=== PATIENT | female | born 1985 | race Caucasian/White ===

== ENCOUNTER 2017-02-04 21:32 | Emergency (ER) | payer OTHER ==
--- NOTE | 2017-02-04 22:36 | ED CLINICAL REPORT ---
Clinical Report - Physicians/Mid Levels [facility] [address] [place] [place] [address] 02/04/2017 21:33 [id number] Time Seen: 22:05 Feb 04 2017. Arrived- By private vehicle. Historian- patient. HISTORY OF PRESENT ILLNESS Chief Complaint: DYSURIA. This started today and still present. The symptoms are described as moderate. The patient has had pelvic pain. She has had pain with urination and urgency of urination. The patient has had urinary frequency. Last normal menstrual period was 1 week ago. Sexually active. REVIEW OF SYSTEMS No vomiting, diarrhea, fever or cough. All systems otherwise negative, except as recorded above. PAST HISTORY Problems: Contusion. Gastroparesis. Additional Surgeries: Cholecystectomy. . Gallbladder Surgery. [place] teeth. Medications: Nexium 24HR Oral (Capsule Delayed Release 20 mg) 2 capsules, twice daily. Allergies: morphine. Shellfish-derived Products. Vancomycin. SOCIAL HISTORY Never smoker. Alcohol use. No drug use. ADDITIONAL NOTES The nursing notes have been reviewed. PHYSICAL EXAM Vital Signs: 02/04/2017 21:41 BP: 157/104. HR: 115. RR: 20. O2 saturation: 100%. Temp: 97.8 F. Pain level now: 4/10. Appearance: Alert. No acute distress. HEENT: Normal external inspection. Neck: Neck supple. No thyromegaly or lymphadenopathy. CVS: Heart sounds normal. Respiratory: No respiratory distress. Breath sounds normal. Abdomen: Soft and nontender. No abdominal tenderness or rebound tenderness. Skin: No rash. LABS, X-RAYS, AND EKG Laboratory Tests: UA-Culture if indicated: (MARIVEL: 02/04/2017 21:50) ( MsgRcvd 02/04/2017 22:11) Final results Test Result Flag Units (Reference) URINE COLOR YELLOW URINE APPEARANCE CLEAR URINE GLUCOSE NEGATIVE (NEGATIVE) URINE BILIRUBIN NEGATIVE (NEGATIVE) URINE KETONE NEGATIVE (NEGATIVE) URINE SPECIFIC GRAVITY <= 1.005 L (1.010-1.030) URINE PH 6.0 (5.0-8.0) URINE PROTEIN NEGATIVE (NEGATIVE) URINE UROBILINOGEN 0.2 EU/dL (0.2-1.0) URINE NITRITE NEGATIVE (NEGATIVE) URINE BLOOD NEGATIVE (NEGATIVE) URINE LEUK ESTERASE POSITIVE (NEGATIVE) URINE RBC NONE SEEN rbc/hpf (0-1) URINE WBC 1-3 wbc/hpf (0-1) URINE EPITHELIAL CELLS 0-1 EPI/hpf (0-5) URINE BACTERIA TRACE (<1+) (NONE SEEN) URINE COMMENT CULTURE INDICATED URINE CULTURES ARE SET-UP BASED ON THE FOLLOWING CRITERIA:POSITIVE NITRITEPOSITIVE LEUKOCYTE ESTERASEGREATER THAN 10 WHITE BLOOD CELLSMODERATE (2+) OR GREATER BACTERIA Urine: (MARIVEL: 02/04/2017 21:50) ( [facility] 02/04/2017 22:00) Final results Test Result Flag Units (Reference) URINE NEGATIVE CBC w Diff: (MARIVEL: 02/04/2017 22:12) ( [facility] 02/04/2017 22:21) Final results Test Result Flag Units (Reference) WHITE BLOOD COUNT 13.5 H K/uL (4.5-11.5) RED BLOOD COUNT 4.35 M/uL (4.00-5.20) HEMOGLOBIN 14.3 gm/dL (12.0-16.0) HEMATOCRIT 41.8 % (36.0-46.0) MEAN CELL VOLUME 96 fL (80-100) MEAN CORPUSCULAR HGB 33 pg (26-34) MEAN CORPUSCULAR HGB CONC 34 g/dL (31-37) RED CELL DISTRIBUTION WIDTH 12.4 % (11.6-14.8) PLATELET COUNT 440 H K/uL (150-400) NEUTROPHIL % 55.9 % (50-75) LYMPH % 35.7 % (25-40) MONO % 6.9 % (3-14) EOSINOPHIL % 1.0 % (0-4) BASOPHIL % 0.5 % (0-2) . PROGRESS AND PROCEDURES Course of Care: non- female with signs of early cystitis. Slight leukocytosis, no CVA tenderness. Abdomen is soft non-tender. Pain is not out of proportion. Patient with dysuria and urgency. Symptoms are most consistent with cystitis. Patient will be started on Macrobid. No prior urinary cultures. Patient given her first dose in the emergency department. 02/04/2017 21:41 BP: 157/104. HR: 115. RR: 20. O2 saturation: 100%. Temp: 97.8 F. Pain level now: 4/10. Patient is stable. Physical exam findings are improved. Symptoms better. Patient/family counseled. Disposition: Discharged. CLINICAL IMPRESSION Chronic cystitis. INSTRUCTIONS Drink plenty of fluids. Warnings: Further evaluation is necessary. Prescription Medications: Hydrocodone/APAP 5mg / 325mg: take 1 orally every 6 hours as needed for pain. Dispense five (5). No refill. Pyridium 100 mg: take 1 orally every 8 hours for 3 days as needed for urinary problems. Dispense ten (10). No refill. Substitution is permissible. Macrobid 100 mg: Take 1 capsule orally every 12 hours for 7 days. No refills. Substitution is permissible. Follow-up: Follow up with your doctor in three days. (Electronically signed by Karla Cabrera P.A.-C 02/04/2017 22:38)
--- NOTE | 2017-02-04 22:36 | ED ORDER SUMMARY ---
..... Patient: LUCITA SERVIN OrderSheet [facility] VisitID: [id number] [address] [address] [place] [address] 31y, F Registration Date/Time: 02/04/2017 ORDER SHEET Weight: 99.7 kg (stated) Allergies: morphine, Shellfish-derived Products, Vancomycin GENERAL ORDERS: UA-Culture if indicated Urgent (21:50 02/04/2017 EKoroleva P.A.-C) (21:56 AMcQuoid ER Tech1) Urine Urgent (21:50 02/04/2017 EKoroleva P.A.-C) (21:56 AMcQuoid ER Tech1) CBC w Diff Urgent (21:59 02/04/2017 EKoroleva P.A.-C) (Ack 21:59 AMcQuoid ER Tech1) (22:12 AMcQuoid ER Tech1) MEDICATION ORDERS: Pyridium PO 200 mg (NOW) (22:16 02/04/2017 EKoroleva P.A.-C) (Ack 22:20 HSoule) (22:23 HSoule) Macrobid PO 100 mg (NOW) (22:16 02/04/2017 EKoroleva P.A.-C) (Ack 22:20 HSoule) (22:23 HSoule) IV FLUIDS: ORDER SHEET NOTES: [Electronically signed by Karla CabreraAChantell-C (22:38 02/04/2017)] [Electronically signed by Sheriff Zakiya Jack (22:43 02/04/2017)] [Electronically locked/signed by Sheriff Zakiya Jack (22:43 02/04/2017)]
--- NOTE | 2017-02-04 22:36 | ED CLINICAL REPORT ---
Clinical Report - Physicians/Mid Levels [facility] [address] [place] [place] [address] 02/04/2017 21:33 [id number] Time Seen: 22:05 Feb 04 2017. Arrived- By private vehicle. Historian- patient. HISTORY OF PRESENT ILLNESS Chief Complaint: DYSURIA. This started today and still present. The symptoms are described as moderate. The patient has had pelvic pain. She has had pain with urination and urgency of urination. The patient has had urinary frequency. Last normal menstrual period was 1 week ago. Sexually active. REVIEW OF SYSTEMS No vomiting, diarrhea, fever or cough. All systems otherwise negative, except as recorded above. PAST HISTORY Problems: Contusion. Gastroparesis. Additional Surgeries: Cholecystectomy. . Gallbladder Surgery. [place] teeth. Medications: Nexium 24HR Oral (Capsule Delayed Release 20 mg) 2 capsules, twice daily. Allergies: morphine. Shellfish-derived Products. Vancomycin. SOCIAL HISTORY Never smoker. Alcohol use. No drug use. ADDITIONAL NOTES The nursing notes have been reviewed. PHYSICAL EXAM Vital Signs: 02/04/2017 21:41 BP: 157/104. HR: 115. RR: 20. O2 saturation: 100%. Temp: 97.8 F. Pain level now: 4/10. Appearance: Alert. No acute distress. HEENT: Normal external inspection. Neck: Neck supple. No thyromegaly or lymphadenopathy. CVS: Heart sounds normal. Respiratory: No respiratory distress. Breath sounds normal. Abdomen: Soft and nontender. No abdominal tenderness or rebound tenderness. Skin: No rash. LABS, X-RAYS, AND EKG Laboratory Tests: UA-Culture if indicated: (MARIVEL: 02/04/2017 21:50) ( MsgRcvd 02/04/2017 22:11) Final results Test Result Flag Units (Reference) URINE COLOR YELLOW URINE APPEARANCE CLEAR URINE GLUCOSE NEGATIVE (NEGATIVE) URINE BILIRUBIN NEGATIVE (NEGATIVE) URINE KETONE NEGATIVE (NEGATIVE) URINE SPECIFIC GRAVITY <= 1.005 L (1.010-1.030) URINE PH 6.0 (5.0-8.0) URINE PROTEIN NEGATIVE (NEGATIVE) URINE UROBILINOGEN 0.2 EU/dL (0.2-1.0) URINE NITRITE NEGATIVE (NEGATIVE) URINE BLOOD NEGATIVE (NEGATIVE) URINE LEUK ESTERASE POSITIVE (NEGATIVE) URINE RBC NONE SEEN rbc/hpf (0-1) URINE WBC 1-3 wbc/hpf (0-1) URINE EPITHELIAL CELLS 0-1 EPI/hpf (0-5) URINE BACTERIA TRACE (<1+) (NONE SEEN) URINE COMMENT CULTURE INDICATED URINE CULTURES ARE SET-UP BASED ON THE FOLLOWING CRITERIA:POSITIVE NITRITEPOSITIVE LEUKOCYTE ESTERASEGREATER THAN 10 WHITE BLOOD CELLSMODERATE (2+) OR GREATER BACTERIA Urine: (MARIVEL: 02/04/2017 21:50) ( [facility] Final results Test Result Flag Units (Reference) URINE NEGATIVE CBC w Diff: (MARIVEL: 02/04/2017 22:12) ( [facility] 02/04/[facility] 22:21) Final results Test Result Flag Units (Reference) WHITE BLOOD COUNT 13.5 H K/uL (4.5-11.5) RED BLOOD COUNT 4.35 M/uL (4.00-5.20) HEMOGLOBIN 14.3 gm/dL (12.0-16.0) HEMATOCRIT 41.8 % (36.0-46.0) MEAN CELL VOLUME 96 fL (80-100) MEAN CORPUSCULAR HGB 33 pg (26-34) MEAN CORPUSCULAR HGB CONC 34 g/dL (31-37) RED CELL DISTRIBUTION WIDTH 12.4 % (11.6-14.8) PLATELET COUNT 440 H K/uL (150-400) NEUTROPHIL % 55.9 % (50-75) LYMPH % 35.7 % (25-40) MONO % 6.9 % (3-14) EOSINOPHIL % 1.0 % (0-4) BASOPHIL % 0.5 % (0-2) . PROGRESS AND PROCEDURES Course of Care: non- female with signs of early cystitis. Slight leukocytosis, no CVA tenderness. Abdomen is soft non-tender. Pain is not out of proportion. Patient with dysuria and urgency. Symptoms are most consistent with cystitis. Patient will be started on Macrobid. No prior urinary cultures. Patient given her first dose in the emergency department. 02/04/2017 21:41 BP: 157/104. HR: 115. RR: 20. O2 saturation: 100%. Temp: 97.8 F. Pain level now: 4/10. Patient is stable. Physical exam findings are improved. Symptoms better. Patient/family counseled. Disposition: Discharged. CLINICAL IMPRESSION Chronic cystitis. INSTRUCTIONS Drink plenty of fluids. Warnings: Further evaluation is necessary. Prescription Medications: Hydrocodone/APAP 5mg / 325mg: take 1 orally every 6 hours as needed for pain. Dispense five (5). No refill. Pyridium 100 mg: take 1 orally every 8 hours for 3 days as needed for urinary problems. Dispense ten (10). No refill. Substitution is permissible. Macrobid 100 mg: Take 1 capsule orally every 12 hours for 7 days. No refills. Substitution is permissible. Follow-up: Follow up with your doctor in three days. (Electronically signed by Karla Cabrera P.A.-C 02/04/2017 22:38)
--- NOTE | 2017-02-04 22:36 | ED NURSING NOTES ---
Clinical Report - Nurses [facility] [address] [place] [place] [address] 02/04/2017 21:33 Patient: LUCITA SERVIN TRIAGE Triage time 21:41. Chief Complaint: PAINFUL URINATION. --21:48 Sheriff Jack R.N. 21:41 02/04/17. BP: 157/104. HR: 115. RR: 20. O2 saturation: 100%. Temp: 97.8 F. Pain level now: 12/21. --21:48 Sheriff Jack R.N. Weight: 99.7 kg stated. Height/Length: 61 inches Per Patient. BMI: 41.6. --21:47 Sheriff Jack R.N. Medications Nexium 24HR Oral (Capsule Delayed Release 20 mg) 2 capsules, twice daily. --21:44 Sheriff Jack R.N. Allergies morphine. Shellfish-derived Products. Vancomycin. --21:44 Sheriff Jack R.N. History Arrived by private vehicle. Historian: patient. Accompanied by friend. ( Painful urination started few hours ago. History of frequent UTI.). PAST MEDICAL HX: Last normal menstrual period- 5 days ago. Denies current . SURGERY HX: has been performed twice. Cholecystectomy (7 years ago). SOCIAL HX: Never smoker. Alcohol use; consumes beer occasionally and one liquor. No drug use. FALL RISK ASSESSMENT: Fall risk assessment completed. No fall risk identified. NUTRITIONAL RISK ASSESSMENT: The nutritional risk assessment revealed no deficiencies. FUNCTIONAL ASSESSMENT: Functional assessment: no impairments noted. LEARNING NEEDS ASSESSMENT: The learning needs assessment revealed no barriers. SKIN INTEGRITY ASSESSMENT: Skin integrity risk assessment completed. No skin integrity risk identified. --21:48 Sheriff Jack R.N. PROBLEMS: Contusion. Gastroparesis. --21:44 Sheriff Jack R.N. PHYSICAL ASSESSMENT Ambulatory to room. Patient gowned. GENERAL / NEURO / PSYCH: Alert. Oriented X 4. Appears in no acute distress. HEENT: Mucous membranes are pink. RESPIRATORY: Respirations not labored. CVS: Capillary refill less than 2 seconds. SKIN: Skin is warm and dry. --21:53 Sheriff Jack R.N. NURSING PROGRESS NOTES Two patient identifiers checked. Call light placed in reach. Side rails up x 2. Bed placed in lowest position. Brakes of bed on. --21:53 Sheriff Jack R.N. 22:13. Checked patient name and birthdate: patient confirmed. Blood samples drawn from the right forearm by tech per protocol ; labeled in presence of the patient and sent to lab: rainbow set. --22:13 McQuoid, Adilia, ER Tech1 22:23 02/04/2017 Pyridium (Phenazopyridine HCl) PO Tablets 200 mg given. Allergies verified and confirmed 5 rights. --22:23 Chikis Moore 22:23 02/04/2017 Macrobid PO Capsules 100 mg given. Allergies verified and confirmed 5 rights. --22:23 Chikis Moore. DISPOSITION / DISCHARGE No learning barriers present. Discharge instructions provided and reviewed with the patient. Reviewed medication(s) side effects, precautions, dosing and course information. Prescription(s) given to the parent. Patient verbalized understanding. Written instructions provided in [place]. The patient was discharged by the physician front desk assistant. She was discharged home and (Friend) and accompanied by Friend. She left the Emergency Department ambulatory and via private vehicle. Driving (Friend). --22:43 Sheriff Jack R.N. Locked/Released at 02/04/2017 22:43 by Sheriff Jack R.N.
--- NOTE | 2017-02-04 22:36 | ED ORDER SUMMARY ---
..... Patient: LUCITA SERVIN OrderSheet [facility] VisitID: [id number] [address] [place] [address] 31y, F Registration Date/Time: 02/04/2017 ORDER SHEET Weight: 99.7 kg (stated) Allergies: morphine, Shellfish-derived Products, Vancomycin GENERAL ORDERS: UA-Culture if indicated Urgent (21:50 02/04/2017 EKoroleva P.A.-C) (21:56 AMcQuoid ER Tech1) Urine Urgent (21:50 02/04/2017 EKoroleva P.A.-C) (21:56 AMcQuoid ER Tech1) CBC w Diff Urgent (21:59 02/04/2017 EKoroleva P.A.-C) (Ack 21:59 AMcQuoid ER Tech1) (22:12 AMcQuoid ER Tech1) MEDICATION ORDERS: Pyridium PO 200 mg (NOW) (22:16 02/04/2017 EKoroleva P.A.-C) (Ack 22:20 HSoule) (22:23 HSoule) Macrobid PO 100 mg (NOW) (22:16 02/04/2017 EKoroleva P.A.-C) (Ack 22:20 HSoule) (22:23 HSoule) IV FLUIDS: ORDER SHEET NOTES: [Electronically signed by Karla CabreraAChantell-C (22:38 02/04/2017)] [Electronically signed by Sheriff Zakiya Jack (22:43 02/04/2017)] [Electronically locked/signed by Sheriff Zakiya Jack (22:43 02/04/2017)]
--- NOTE | 2017-02-04 22:36 | ED NURSING NOTES ---
Clinical Report - Nurses [facility] [address] [place] [address] 02/04/2017 21:33 Patient: LUCITA SERVIN TRIAGE Triage time 21:41. Chief Complaint: PAINFUL URINATION. --21:48 Sheriff Jack R.N. 21:41 02/04/17. BP: 157/104. HR: 115. RR: 20. O2 saturation: 100%. Temp: 97.8 F. Pain level now: 12/21. --21:48 Sheriff Jack R.N. Weight: 99.7 kg stated. Height/Length: 61 inches Per Patient. BMI: 41.6. --21:47 Sheriff Jack R.N. Medications Nexium 24HR Oral (Capsule Delayed Release 20 mg) 2 capsules, twice daily. --21:44 Sheriff Jack R.N. Allergies morphine. Shellfish-derived Products. Vancomycin. --21:44 Sheriff Jack R.N. History Arrived by private vehicle. Historian: patient. Accompanied by friend. ( Painful urination started few hours ago. History of frequent UTI.). PAST MEDICAL HX: Last normal menstrual period- 5 days ago. Denies current . SURGERY HX: has been performed twice. Cholecystectomy (7 years ago). SOCIAL HX: Never smoker. Alcohol use; consumes beer occasionally and one liquor. No drug use. FALL RISK ASSESSMENT: Fall risk assessment completed. No fall risk identified. NUTRITIONAL RISK ASSESSMENT: The nutritional risk assessment revealed no deficiencies. FUNCTIONAL ASSESSMENT: Functional assessment: no impairments noted. LEARNING NEEDS ASSESSMENT: The learning needs assessment revealed no barriers. SKIN INTEGRITY ASSESSMENT: Skin integrity risk assessment completed. No skin integrity risk identified. --21:48 Sheriff Jack R.N. PROBLEMS: Contusion. Gastroparesis. --21:44 Sheriff Jack R.N. PHYSICAL ASSESSMENT Ambulatory to room. Patient gowned. GENERAL / NEURO / PSYCH: Alert. Oriented X 4. Appears in no acute distress. HEENT: Mucous membranes are pink. RESPIRATORY: Respirations not labored. CVS: Capillary refill less than 2 seconds. SKIN: Skin is warm and dry. --21:53 Sheriff Jack R.N. NURSING PROGRESS NOTES Two patient identifiers checked. Call light placed in reach. Side rails up x 2. Bed placed in lowest position. Brakes of bed on. --21:53 Sheriff Jack R.N. 22:13. Checked patient name and birthdate: patient confirmed. Blood samples drawn from the right forearm by tech per protocol ; labeled in presence of the patient and sent to lab: rainbow set. --22:13 McQuoid, Adilia, ER Tech1 22:23 02/04/2017 Pyridium (Phenazopyridine HCl) PO Tablets 200 mg given. Allergies verified and confirmed 5 rights. --22:23 Chikis Moore 22:23 02/04/2017 Macrobid PO Capsules 100 mg given. Allergies verified and confirmed 5 rights. --22:23 Chikis Moore. DISPOSITION / DISCHARGE No learning barriers present. Discharge instructions provided and reviewed with the patient. Reviewed medication(s) side effects, precautions, dosing and course information. Prescription(s) given to the parent. Patient verbalized understanding. Written instructions provided in [place]er. The patient was discharged by the physician campaign assistant. She was discharged home and (Friend) and accompanied by Friend. She left the Emergency Department ambulatory and via private vehicle. Driving (Friend). --22:43 Sheriff Jack R.N. Locked/Released at 02/04/2017 22:43 by Sheriff Jack R.N.
--- NOTE | 2017-02-04 22:44 | ED MED RECONCILIATION SUMMARY ---
Patient: LUCITA SERVIN Medication Reconciliation Report [facility] VisitID: [id number] [place] [address] 31y, F Registration Date/Time: 02/04/2017 Weight: 99.7 kg Height/Length: 61 in. BMI: 41.6 ALLERGIES: morphine, Shellfish-derived Products, Vancomycin The patient's Home Medications are listed below: THE FOLLOWING MEDICATIONS NEED TO BE RECONCILED: Nexium 24HR Oral (20 mg) 2 capsules, twice daily The source(s) of the original Home Medication information: Not obtained. The following Medications were given to the patient in the Emergency Department: Pyridium [PO] PO 200 mg, administered: 02/04/2017 10:23:00 PM Macrobid [PO] PO 100 mg, administered: 02/04/2017 10:23:00 PM The following Medications were prescribed to the patient: Hydrocodone/APAP 5mg / 325mg: take 1 orally every 6 hours as needed for pain. Dispense five (5). No refill. -- Karla Cabrera P.AChantell-Ezio Pyridium 100 mg: take 1 orally every 8 hours for 3 days as needed for urinary problems. Dispense ten (10). No refill. Substitution is permissible. -- Karla Cabrera P.AChantell-Ezio Macrobid 100 mg: Take 1 capsule orally every 12 hours for 7 days. No refills. Substitution is permissible. -- Karla Cabrera P.A.-C
--- NOTE | 2017-02-04 22:44 | ED DISCHARGE INSTRUCTIONS ---
Patient: LUCITA SERVIN General Instructions [facility] VisitID: [id number] [place] [address] 31y, F Registration Date/Time: 02/04/2017 Chronic cystitis. INSTRUCTIONS Drink plenty of fluids. Warnings: Further evaluation is necessary. Prescription Medications: Hydrocodone/APAP 5mg / 325mg: take 1 orally every 6 hours as needed for pain. Dispense five (5). No refill. Pyridium 100 mg: take 1 orally every 8 hours for 3 days as needed for urinary problems. Dispense ten (10). No refill. Substitution is permissible. Macrobid 100 mg: Take 1 capsule orally every 12 hours for 7 days. No refills. Substitution is permissible. Follow-up: Follow up with your doctor in three days. ADDITIONAL INFORMATION Bladder Infection,Female (Adult) A bladder infection ("cystitis" or "UTI") usually causes a constant urge to urinate and a burning when passing urine. Urine may be cloudy, smelly or dark. There may be pain in the lower abdomen. A bladder infection occurs when bacteria from the vaginal area enter the bladder opening (urethra). This can occur from sexual intercourse, wearing tight clothing, dehydration and other factors. Home Care: Drink lots of fluids (at least 6-8 glasses a day, unless you must restrict fluids for other medical reasons). This will force the medicine into your urinary system and flush the bacteria out of your body. Avoid sexual intercourse until your symptoms are gone. Avoid caffeine, alcohol and spicy foods. These can irritate the bladder. A bladder infection is treated with antibiotics. You may also be given Pyridium (generic = phenazopyridine) to reduce the burning sensation. This medicine will cause your urine to become a bright orange color. The orange urine may stain clothing. You may wear a pad or panty-liner to protect clothing. Preventing Future Infections: Always wipe from front to back after a bowel movement. Keep the genital area clean and dry. Drink plenty of fluids each day to avoid dehydration. Both sexual partners should wash before intercourse. Urinate right after intercourse to flush out the bladder. Wear cotton underwear and cotton-lined panty hose; avoid tight-fitting pants. If you are on control pills and are having frequent bladder infections, discuss with your doctor. Follow Up: Return to this facility or see your doctor if ALL symptoms are not gone after three days of treatment. Get Prompt Medical Attention if any of the following occur: Fever of 100.4F (38C) or higher, or as directed by your healthcare provider No improvement by the third day of treatment Increasing back or abdominal pain Repeated vomiting; unable to keep medicine down Weakness, dizziness or fainting Vaginal discharge Pain, redness or swelling in the labia (outer vaginal area) Hydrocodone Bitartrate, Acetaminophen Oral tablet What is this medicine? ACETAMINOPHEN; HYDROCODONE (a set a HANSEL zoe fen; chaitanya droe KOE done) is a pain reliever. It is used to treat mild to moderate pain. How should I use this medicine? Take this medicine by mouth. Swallow it with a full glass of water. Follow the directions on the prescription label. If the medicine upsets your stomach, take the medicine with food or milk. Do not take more than you are told to take. Talk to your refrigeration plant cork insulator regarding the use of this medicine in children. This medicine is not approved for use in children. What side effects may I notice from receiving this medicine? Side effects that you should report to your doctor or health critical care technician as soon as possible: allergic reactions like skin rash, itching or hives, swelling of the face, lips, or tongue breathing problems confusion feeling faint or lightheaded, falls stomach pain yellowing of the eyes or skin Side effects that usually do not require medical attention (report to your doctor or health critical care technician if they continue or are bothersome): nausea, vomiting stomach upset What may interact with this medicine? alcohol antihistamines isoniazid medicines for depression, anxiety, or psychotic disturbances medicines for sleep muscle relaxants naltrexone narcotic medicines (opiates) for pain phenobarbital ritonavir tramadol What if I miss a dose? If you miss a dose, take it as soon as you can. If it is almost time for your next dose, take only that dose. Do not take double or extra doses. Where should I keep my medicine? Keep out of the reach of children. This medicine can be abused. Keep your medicine in a safe place to protect it from theft. Do not share this medicine with anyone. Selling or giving away this medicine is dangerous and against the law. Store at room temperature between 15 and 30 degrees C (59 and 86 degrees F). Protect from light. Keep container tightly closed. Throw away any unused medicine after the expiration date. Discard unused medicine and used packaging carefully. Pets and children can be harmed if they find used or lost packages. What should I tell my health care provider before I take this medicine? They need to know if you have any of these conditions: brain tumor Crohn's disease, inflammatory bowel disease, or ulcerative colitis drink more than 3 alcohol-containing drinks per day drug abuse or addiction head injury heart or circulation problems kidney disease or problems going to the bathroom liver disease lung disease, asthma, or breathing problems an unusual or allergic reaction to acetaminophen, hydrocodone, other opioid analgesics, other medicines, foods, dyes, or preservatives or trying to get breast-feeding What should I watch for while using this medicine? Tell your doctor or health critical care technician if your pain does not go away, if it gets worse, or if you have new or a different type of pain. You may develop tolerance to the medicine. Tolerance means that you will need a higher dose of the medicine for pain relief. Tolerance is normal and is expected if you take the medicine for a long time. Do not suddenly stop taking your medicine because you may develop a severe reaction. Your body becomes used to the medicine. This does NOT mean you are addicted. Addiction is a behavior related to getting and using a drug for a non-medical reason. If you have pain, you have a medical reason to take pain medicine. Your doctor will tell you how much medicine to take. If your doctor wants you to stop the medicine, the dose will be slowly lowered over time to avoid any side effects. You may get drowsy or dizzy when you first start taking the medicine or change doses. Do not drive, use machinery, or do anything that may be dangerous until you know how the medicine affects you. Stand or sit up slowly. There are different types of narcotic medicines (opiates) for pain. If you take more than one type at the same time, you may have more side effects. Give your health care provider a list of all medicines you use. Your doctor will tell you how much medicine to take. Do not take more medicine than directed. Call emergency for help if you have problems breathing. The medicine will cause constipation. Try to have a bowel movement at least every 2 to 3 days. If you do not have a bowel movement for 3 days, call your doctor or health critical care technician. Too much acetaminophen can be very dangerous. Do not take Tylenol (acetaminophen) or medicines that contain acetaminophen with this medicine. Many non-prescription medicines contain acetaminophen. Always read the labels carefully. Phenazopyridine Hydrochloride Oral tablet What is this medicine? PHENAZOPYRIDINE (fen az oh PEER tc gaspar) is a pain reliever. It is used to stop the pain, burning, or discomfort caused by infection or irritation of the urinary tract. This medicine is not an antibiotic. It will not cure a urinary tract infection. How should I use this medicine? Take this medicine by mouth with a glass of water. Follow the directions on the prescription label. Take after meals. Take your doses at regular intervals. Do not take your medicine more often than directed. Do not skip doses or stop your medicine early even if you feel better. Do not stop taking except on your doctor's advice. Talk to your refrigeration plant cork insulator regarding the use of this medicine in children. Special care may be needed. What side effects may I notice from receiving this medicine? Side effects that you should report to your doctor or health critical care technician as soon as possible: allergic reactions like skin rash, itching or hives, swelling of the face, lips, or tongue blue or purple color of the skin difficulty breathing fever less urine unusual bleeding, bruising unusual tired, weak vomiting yellowing of the eyes or skin Side effects that usually do not require medical attention (report to your doctor or health critical care technician if they continue or are bothersome): dark urine headache stomach upset What may interact with this medicine? Interactions are not expected. What if I miss a dose? If you miss a dose, take it as soon as you can. If it is almost time for your next dose, take only that dose. Do not take double or extra doses. Where should I keep my medicine? Keep out of the reach of children. Store at room temperature between 15 and 30 degrees C (59 and 86 degrees F). Protect from light and moisture. Throw away any unused medicine after the expiration date. What should I tell my health care provider before I take this medicine? They need to know if you have any of these conditions: [id number] dehydrogenase (G6PD) deficiency kidney disease an unusual or allergic reaction to phenazopyridine, other medicines, foods, dyes, or preservatives or trying to get breast-feeding What should I watch for while using this medicine? Tell your doctor or health critical care technician if your symptoms do not improve or if they get worse. This medicine colors body fluids red. This effect is harmless and will go away after you are done taking the medicine. It will change urine to an dark orange or red color. The red color may stain clothing. Soft contact lenses may become permanently stained. It is best not to wear soft contact lenses while taking this medicine. If you are diabetic you may get a false positive result for sugar in your urine. Talk to your health care provider. You have been given the following additional information: Bladder Infection, Female (Adult) Hydrocodone Bitartrate, Acetaminophen Oral tablet Phenazopyridine Hydrochloride Oral tablet (Electronically signed by Karla Cabrera P.A.-C 02/04/2017 22:38)
--- NOTE | 2017-02-04 22:44 | ED DISCHARGE INSTRUCTIONS ---
Patient: LUCITA SERVIN General Instructions [facility] VisitID: [id number] [place] [address] 31y, F Registration Date/Time: 02/04/2017 Chronic cystitis. INSTRUCTIONS Drink plenty of fluids. Warnings: Further evaluation is necessary. Prescription Medications: Hydrocodone/APAP 5mg / 325mg: take 1 orally every 6 hours as needed for pain. Dispense five (5). No refill. Pyridium 100 mg: take 1 orally every 8 hours for 3 days as needed for urinary problems. Dispense ten (10). No refill. Substitution is permissible. Macrobid 100 mg: Take 1 capsule orally every 12 hours for 7 days. No refills. Substitution is permissible. Follow-up: Follow up with your doctor in three days. ADDITIONAL INFORMATION Bladder Infection,Female (Adult) A bladder infection ("cystitis" or "UTI") usually causes a constant urge to urinate and a burning when passing urine. Urine may be cloudy, smelly or dark. There may be pain in the lower abdomen. A bladder infection occurs when bacteria from the vaginal area enter the bladder opening (urethra). This can occur from sexual intercourse, wearing tight clothing, dehydration and other factors. Home Care: Drink lots of fluids (at least 6-8 glasses a day, unless you must restrict fluids for other medical reasons). This will force the medicine into your urinary system and flush the bacteria out of your body. Avoid sexual intercourse until your symptoms are gone. Avoid caffeine, alcohol and spicy foods. These can irritate the bladder. A bladder infection is treated with antibiotics. You may also be given Pyridium (generic = phenazopyridine) to reduce the burning sensation. This medicine will cause your urine to become a bright orange color. The orange urine may stain clothing. You may wear a pad or panty-liner to protect clothing. Preventing Future Infections: Always wipe from front to back after a bowel movement. Keep the genital area clean and dry. Drink plenty of fluids each day to avoid dehydration. Both sexual partners should wash before intercourse. Urinate right after intercourse to flush out the bladder. Wear cotton underwear and cotton-lined panty hose; avoid tight-fitting pants. If you are on control pills and are having frequent bladder infections, discuss with your doctor. Follow Up: Return to this facility or see your doctor if ALL symptoms are not gone after three days of treatment. Get Prompt Medical Attention if any of the following occur: Fever of 100.4F (38C) or higher, or as directed by your healthcare provider No improvement by the third day of treatment Increasing back or abdominal pain Repeated vomiting; unable to keep medicine down Weakness, dizziness or fainting Vaginal discharge Pain, redness or swelling in the labia (outer vaginal area) Hydrocodone Bitartrate, Acetaminophen Oral tablet What is this medicine? ACETAMINOPHEN; HYDROCODONE (a set a HANSEL zoe fen; chaitanya droe KOE done) is a pain reliever. It is used to treat mild to moderate pain. How should I use this medicine? Take this medicine by mouth. Swallow it with a full glass of water. Follow the directions on the prescription label. If the medicine upsets your stomach, take the medicine with food or milk. Do not take more than you are told to take. Talk to your fireworks display specialist regarding the use of this medicine in children. This medicine is not approved for use in children. What side effects may I notice from receiving this medicine? Side effects that you should report to your doctor or health care coordinator as soon as possible: allergic reactions like skin rash, itching or hives, swelling of the face, lips, or tongue breathing problems confusion feeling faint or lightheaded, falls stomach pain yellowing of the eyes or skin Side effects that usually do not require medical attention (report to your doctor or health care coordinator if they continue or are bothersome): nausea, vomiting stomach upset What may interact with this medicine? alcohol antihistamines isoniazid medicines for depression, anxiety, or psychotic disturbances medicines for sleep muscle relaxants naltrexone narcotic medicines (opiates) for pain phenobarbital ritonavir tramadol What if I miss a dose? If you miss a dose, take it as soon as you can. If it is almost time for your next dose, take only that dose. Do not take double or extra doses. Where should I keep my medicine? Keep out of the reach of children. This medicine can be abused. Keep your medicine in a safe place to protect it from theft. Do not share this medicine with anyone. Selling or giving away this medicine is dangerous and against the law. Store at room temperature between 15 and 30 degrees C (59 and 86 degrees F). Protect from light. Keep container tightly closed. Throw away any unused medicine after the expiration date. Discard unused medicine and used packaging carefully. Pets and children can be harmed if they find used or lost packages. What should I tell my health care provider before I take this medicine? They need to know if you have any of these conditions: brain tumor Crohn's disease, inflammatory bowel disease, or ulcerative colitis drink more than 3 alcohol-containing drinks per day drug abuse or addiction head injury heart or circulation problems kidney disease or problems going to the bathroom liver disease lung disease, asthma, or breathing problems an unusual or allergic reaction to acetaminophen, hydrocodone, other opioid analgesics, other medicines, foods, dyes, or preservatives or trying to get breast-feeding What should I watch for while using this medicine? Tell your doctor or health care coordinator if your pain does not go away, if it gets worse, or if you have new or a different type of pain. You may develop tolerance to the medicine. Tolerance means that you will need a higher dose of the medicine for pain relief. Tolerance is normal and is expected if you take the medicine for a long time. Do not suddenly stop taking your medicine because you may develop a severe reaction. Your body becomes used to the medicine. This does NOT mean you are addicted. Addiction is a behavior related to getting and using a drug for a non-medical reason. If you have pain, you have a medical reason to take pain medicine. Your doctor will tell you how much medicine to take. If your doctor wants you to stop the medicine, the dose will be slowly lowered over time to avoid any side effects. You may get drowsy or dizzy when you first start taking the medicine or change doses. Do not drive, use machinery, or do anything that may be dangerous until you know how the medicine affects you. Stand or sit up slowly. There are different types of narcotic medicines (opiates) for pain. If you take more than one type at the same time, you may have more side effects. Give your health care provider a list of all medicines you use. Your doctor will tell you how much medicine to take. Do not take more medicine than directed. Call emergency for help if you have problems breathing. The medicine will cause constipation. Try to have a bowel movement at least every 2 to 3 days. If you do not have a bowel movement for 3 days, call your doctor or health care coordinator. Too much acetaminophen can be very dangerous. Do not take Tylenol (acetaminophen) or medicines that contain acetaminophen with this medicine. Many non-prescription medicines contain acetaminophen. Always read the labels carefully. Phenazopyridine Hydrochloride Oral tablet What is this medicine? PHENAZOPYRIDINE (fen az oh PEER tc gaspar) is a pain reliever. It is used to stop the pain, burning, or discomfort caused by infection or irritation of the urinary tract. This medicine is not an antibiotic. It will not cure a urinary tract infection. How should I use this medicine? Take this medicine by mouth with a glass of water. Follow the directions on the prescription label. Take after meals. Take your doses at regular intervals. Do not take your medicine more often than directed. Do not skip doses or stop your medicine early even if you feel better. Do not stop taking except on your doctor's advice. Talk to your fireworks display specialist regarding the use of this medicine in children. Special care may be needed. What side effects may I notice from receiving this medicine? Side effects that you should report to your doctor or health care coordinator as soon as possible: allergic reactions like skin rash, itching or hives, swelling of the face, lips, or tongue blue or purple color of the skin difficulty breathing fever less urine unusual bleeding, bruising unusual tired, weak vomiting yellowing of the eyes or skin Side effects that usually do not require medical attention (report to your doctor or health care coordinator if they continue or are bothersome): dark urine headache stomach upset What may interact with this medicine? Interactions are not expected. What if I miss a dose? If you miss a dose, take it as soon as you can. If it is almost time for your next dose, take only that dose. Do not take double or extra doses. Where should I keep my medicine? Keep out of the reach of children. Store at room temperature between 15 and 30 degrees C (59 and 86 degrees F). Protect from light and moisture. Throw away any unused medicine after the expiration date. What should I tell my health care provider before I take this medicine? They need to know if you have any of these conditions: [id number] dehydrogenase (G6PD) deficiency kidney disease an unusual or allergic reaction to phenazopyridine, other medicines, foods, dyes, or preservatives or trying to get breast-feeding What should I watch for while using this medicine? Tell your doctor or health care coordinator if your symptoms do not improve or if they get worse. This medicine colors body fluids red. This effect is harmless and will go away after you are done taking the medicine. It will change urine to an dark orange or red color. The red color may stain clothing. Soft contact lenses may become permanently stained. It is best not to wear soft contact lenses while taking this medicine. If you are diabetic you may get a false positive result for sugar in your urine. Talk to your health care provider. You have been given the following additional information: Bladder Infection, Female (Adult) Hydrocodone Bitartrate, Acetaminophen Oral tablet Phenazopyridine Hydrochloride Oral tablet (Electronically signed by Karla Cabrera P.A.-C 02/04/2017 22:38)
--- NOTE | 2017-02-04 22:44 | ED MAR SUMMARY ---
..... Medication Administration Record [facility] [address] [place] [address] Patient: LUCITA SERVIN Visit ID: [id number] 31y, F Weight: 99.7 kg Height/Length: 61 in BMI: 41.6 ALLERGIES: morphine, Shellfish-derived Products, Vancomycin Given 22:02/04/2017 Chikis Moore, Medication Administered: PYRIDIUM [PO] (PHENAZOPYRIDINE HCL), Dose: 200 mg Tablets PO. Medication Ordered: Pyridium PO 200 mg (NOW). Given 22:02/04/2017 Chikis Moore, Medication Administered: MACROBID [PO], Dose: 100 mg Capsules PO. Medication Ordered: Macrobid PO 100 mg (NOW).
--- NOTE | 2017-02-04 22:44 | ED MAR SUMMARY ---
..... Medication Administration Record [facility] [address] [place] [address] Patient: LUCITA SERVIN Visit ID: [id number] 31y, F Weight: 99.7 kg Height/Length: 61 in BMI: 41.6 ALLERGIES: morphine, Shellfish-derived Products, Vancomycin Given 22:02/04/2017 Chikis Moore, Medication Administered: PYRIDIUM [PO] (PHENAZOPYRIDINE HCL), Dose: 200 mg Tablets PO. Medication Ordered: Pyridium PO 200 mg (NOW). Given 22:02/04/2017 Chikis Moore, Medication Administered: MACROBID [PO], Dose: 100 mg Capsules PO. Medication Ordered: Macrobid PO 100 mg (NOW).
--- NOTE | 2017-02-04 22:44 | ED MED RECONCILIATION SUMMARY ---
Patient: LUCITA SERVIN Medication Reconciliation Report [facility] VisitID: [id number] [place] [address] 31y, F Registration Date/Time: 02/04/2017 Weight: 99.7 kg Height/Length: 61 in. BMI: 41.6 ALLERGIES: morphine, Shellfish-derived Products, Vancomycin The patient's Home Medications are listed below: THE FOLLOWING MEDICATIONS NEED TO BE RECONCILED: Nexium 24HR Oral (20 mg) 2 capsules, twice daily The source(s) of the original Home Medication information: Not obtained. The following Medications were given to the patient in the Emergency Department: Pyridium [PO] PO 200 mg, administered: 02/04/2017 10:23:00 PM Macrobid [PO] PO 100 mg, administered: 02/04/2017 10:23:00 PM The following Medications were prescribed to the patient: Hydrocodone/APAP 5mg / 325mg: take 1 orally every 6 hours as needed for pain. Dispense five (5). No refill. -- Karla Cabrera P.AChantell-Ezio Pyridium 100 mg: take 1 orally every 8 hours for 3 days as needed for urinary problems. Dispense ten (10). No refill. Substitution is permissible. -- Karla Cabrera P.AChantell-Ezio Macrobid 100 mg: Take 1 capsule orally every 12 hours for 7 days. No refills. Substitution is permissible. -- Karla Cabrera P.A.-C
== END 2017-02-04 22:37 | disposition home or self-care (01) ==
LOC: ED SRH 21:32
DX: N30.20 Other chronic cystitis without hematuria (principal); Z79.899 Other long term (current) drug therapy; Z88.5 Allergy status to narcotic agent; Z88.1 Allergy status to other antibiotic agents; Z91.013 Allergy to seafood
CPT/HCPCS: 90004; 90469; 93070; 95059